=== PATIENT | female | born 2005 | race Caucasian/White ===

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

== ENCOUNTER 2024-01-07 14:37 | Outpatient (AMB) | payer OTHER, SELFPAY ==
[2024-01-07 14:42] VITALS: BP 104/66; BMI 25.3
--- NOTE | 2024-01-07 14:42 | A.OFFVIS_ITS ---
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 Doing well with no concerns. She tries to eat healthy and stays active with exercise. Mirena user, no regular cycles. Currently is sexually active, new partner x2 months. She denies vaginal itching and irritation. STI screening offered; she accepts. Denies family history of breast, ovarian or colon cancer. [facility] Medical History History of anemia Iron deficiency anemia Family History Family/Other Breast cancer Maternal Grandmother Diabetes High blood pressure Social History Alcohol intake: current Alcohol intake frequency: holidays/special occasions only Patient Tobacco Use Status: Never used Tobacco Current occupational status: student Sexual orientation: Straight/Heterosexual Gender identity: Female Female Reproductive History Menstrual Age of Menarche: 13 Duration of menses: 6-7 days Date of last menstrual period: 10/24/23 control method: progestin IUCD (Mirena 08/03) Total pregnancies: 0 History of STI: No Review of Systems Const All systems reviewed & are unremarkable except as noted in HPI and below Reports as per HPI Eyes Reports no additional complaints ENT Reports no additional complaints Card Reports no additional complaints Resp Reports no additional complaints GI Reports as per HPI and Reports no additional complaints Reports as per HPI Musc Reports no additional complaints Skin/Breast Reports as per HPI Neuro Reports no additional complaints Psych Reports no additional complaints Endo Reports no additional complaints Kareem/Lymph Reports no additional complaints Aller/Immun Reports no additional complaints Physical Exam Vital Signs: Last Vital Signs BP 104/66 01/07/24 14:42 BMI result Body Mass Index 25.3 Const General: cooperative, healthy appearing, no acute distress, well developed and alert Orientation/consciousness: patient oriented x3 HEENT Head: Yes normal to inspection Eyes General: appearance normal, both eyes and all related structures Neck Neck: Yes normal visual inspection Thyroid: Thyroid normal Chest Chest palpation & inspection: normal inspection of the chest and other (no puckering, dimpling, peau de orange, retraction, discharge, masses) Breast/axilla inspection: normal inspection of the breasts Breast/axilla palpation: normal palpation of the breasts Resp Effort & Inspection: normal respiratory effort GI Inspection: Yes normal to inspection Palpation (GI): Soft to palpation Rectal Exam - Female: deferred General: Yes bladder normal to palpation External Female Exam: normal external appearance and normal appearance of the urethra Speculum Exam - Vagina: normal appearance of the vagina, normal palpation and normal vaginal discharge (Thin and milky) Speculum Exam - Cervix: normal appearance of the cervix, normal palpation and Other cervical findings present (IUD strings present) Bimanual exam- vagina & uterus: normal bimanual exam, normal palpation, uterine size normal, bladder normal to palpation, normal palpation and non-tender Bimanual Exam- Adnexa, other: no masses Skin General skin exam: no rashes or lesions noted Rashes: no rashes Neuro General: patient oriented x3 Cognition (Neuro): normal cognition Extrem General: Yes normal to inspection Psych Attitude: cooperative Thought process: Normal thought process present Assessment & Plan Assessment & Plan (1) Encounter for well woman exam with routine gynecological exam: Code(s): Z01.419 - Encounter for gynecological examination (general) (routine) without abnormal findings Plan Discussed: Current recommendations for pap smears per ASCCP guidelines. Breast awareness and periodic breast exams. Maintain a healthy lifestyle including a well balanced diet and routine exercise. Use condoms for STI prevention. Patient verbalizes understanding and agrees to the plan of care. She was given opportunity to ask questions and all questions were answered to the best of my ability. 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 This note is constructed using voice recognition software. While every effort has been made to ensure accuracy, gusset maker errors may have been included. Orders: Orders HIV Ab/Ag Today Z20.2 - Contact with and (suspected) exposure to infections with a predominantly sexual mode of transmission Hepatitis C Antibody Reflex Today Z20.2 - Contact with and (suspected) exposure to infections with a predominantly sexual mode of transmission Hepatitis B Core Antibody Today Z20.2 - Contact with and (suspected) exposure to infections with a predominantly sexual mode of transmission Syphilis Screen Today Z20.2 - Contact with and (suspected) exposure to infections with a predominantly sexual mode of transmission Coding Level of Care Code Est Pt Prev Care 18-39y(16923) Diagnoses Encounter for well woman exam with routine gynecological exam Z01.419
== END 2024-01-08 07:29 | disposition home or self-care (01) ==
LOC: HO.HWS 14:37
PROVIDERS: PCP Family Medicine; Visit Provider Advanced Practice Midwife
DX: Z01.419 Encounter for gynecological examination (general) (routine) without abnormal findings (principal)
CPT/HCPCS: 99395

== ENCOUNTER 2024-01-07 14:37 | Outpatient (REF) | payer OTHER, SELFPAY ==
[2024-01-07 17:50] LABS: CT PCR NOT DETECTED (Not Detect.); NG PCR NOT DETECTED (Not Detect.)
[2024-01-08 15:26] LABS: BV Int Neg Control Negative (Negative); BV Int Pos Control Positive (Positive)
== END 2024-01-07 14:38 | disposition home or self-care (01) ==
LOC: HO.LAB 14:37
PROVIDERS: PCP Family Medicine; Visit Provider Advanced Practice Midwife
DX: Z01.419 Encounter for gynecological examination (general) (routine) without abnormal findings (principal); Z20.2 Contact with and (suspected) exposure to infections with a predominantly sexual mode of transmission
CPT/HCPCS: 0353U; 87480; 87510; 87660; 99395

== ENCOUNTER 2024-01-07 15:24 | Outpatient (REF) | payer OTHER, SELFPAY | END 2024-01-07 15:25 | disposition home or self-care (01) | LOC: HO.LNP 15:24 | PROVIDERS: Visit Provider Advanced Practice Midwife | DX: Z13.89 Encounter for screening for other disorder (principal) ==

== ENCOUNTER 2024-01-16 09:54 | Outpatient (REF) | payer OTHER, SELFPAY ==
[2024-01-17 08:19] LABS: HBc Num1 0.12 S/CO (0.00-0.79); HIV AB/AG Nonreactive (Nonreactive); HIV Num 1 0.07 S/CO (0.00-0.99); Hepatitis B Core Antibody Nonreactive (Nonreactive); ~Hepatitis C Antibody Nonreactive (Nonreactive)
[2024-01-17 08:21] LABS: Syphilis Screen Nonreactive (Nonreactive)
== END 2024-01-16 09:55 | disposition home or self-care (01) ==
LOC: HO.HMGCLDS 09:54
PROVIDERS: PCP Family Medicine; Visit Provider Advanced Practice Midwife
DX: Z11.4 Encounter for screening for human immunodeficiency virus [HIV] (principal); Z20.2 Contact with and (suspected) exposure to infections with a predominantly sexual mode of transmission
CPT/HCPCS: 36415; 86704; 86780; 86803; 87389

== ENCOUNTER 2024-07-24 12:33 | Outpatient (AMB) | payer OTHER, SELFPAY ==
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
[2024-07-24 12:44] VITALS: BP 102/68; PULSE 71; RESP 16; TEMP 36.7; O2SAT 95; BMI 25.5
== END 2024-07-24 13:53 | disposition home or self-care (01) ==
PROVIDERS: PCP Nurse Practitioner Family; Visit Provider Nurse Practitioner Family
DX: Z00.00 Encounter for general adult medical examination without abnormal findings (principal); R12 Heartburn; F41.9 Anxiety disorder, unspecified; G47.9 Sleep disorder, unspecified; D50.9 Iron deficiency anemia, unspecified
CPT/HCPCS: 96127; 99204; 99385

== ENCOUNTER 2025-02-19 12:47 | Outpatient (AMB) | payer OTHER, SELFPAY ==
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
[2025-02-19 12:54] VITALS: BP 123/58; PULSE 76; RESP 16; TEMP 36.8; O2SAT 100; BMI 28.8
== END 2025-02-19 13:46 | disposition home or self-care (01) ==
LOC: HO.HMCFM 12:47
PROVIDERS: PCP Nurse Practitioner Family; Visit Provider Nurse Practitioner Family
DX: F41.1 Generalized anxiety disorder (principal); F32.9 Major depressive disorder, single episode, unspecified; G47.9 Sleep disorder, unspecified

== ENCOUNTER → 2025-02-19 12:47 | Outpatient (BNVA) | payer OTHER, SELFPAY | PROVIDERS: PCP Nurse Practitioner Family; Visit Provider Nurse Practitioner Family | DX: F41.1 Generalized anxiety disorder (principal); F32.9 Major depressive disorder, single episode, unspecified; G47.9 Sleep disorder, unspecified | CPT/HCPCS: 99212 ==

== ENCOUNTER 2025-03-08 12:29 | Outpatient (REF) | payer OTHER, SELFPAY ==
--- OUTSIDE RECORDS SUMMARY | 2025-03-08 14:56 | XMS_ITS | Data Portability ---
Author Organization [place] [facility], Allergy Address [address] [place] [address] Care Team Providers Care Detail Assembler Name Role Phone ANDRE ARZOLA Referring Provider Assessment No assessment recorded. Plan of Treatment Reminders Order Date Submit Date Provider Last Modified By Organization Details Last Modified Time Details Appointments None recorded. Lab None recorded. Referral None recorded. Procedures allergen immunothera py; multiple injections (PROC) 2024 025 [email or web address] Not available 5 11:18:35 allergy testing, skin prick (PROC) 2023 024 [email or web address] Not available 4 13:40:03 intradermal allergy skin testing (PROC) 2023 024 [email or web address] Not available 4 13:40:03 pulmonary function test procedure (PROC) 2023 024 [email or web address] Not available 4 13:40:03 pulse oximetry (PROC) 2023 024 [email or web address] Not available 4 13:40:03 Surgeries None recorded. Imaging CT, sinuses, w/o contrast 2023 [facility], [address] [facility], [place], [address], 4 15:32:22 Medication Orders epinephrine 0.3 mg/0.3 mL injection, auto-inject or 2024 025 [facility] #[id number], [address] [facility] [place], [address], 08:36:53 Patient TargetsNo targets recorded. Patient Instructions Encounter Date Encounter Id Patient Instructions Last Modified By Organization Details Last Modified Time 10/06/2024 [id number] Nursing Documentation for Allergy Testing: Ordering Provider {{Dr. Dustin Shultz* Dr. Damian Melendez}} Weight:lbs:? ? ?kg: ? ? ? PFT {{Yes* no}} With Bronchodilator {{Yes no*}} Dr. ferguson needed to proceed with allergy testing? {{Yes No*}} {{Dr. Dustin Melendez}} ok'd testing {{Yes No Pulmonary Clearance PCP Clearance RAST}}Hi story of Asthma:{{Yes No*}} Asthma Meds: ? ? ?Last used:? ? ? Asthma exacerbated by: ? ? ? Chance that : {{Yes No* Not Sure N/A}} Fear of needles: {{Yes No*}} Regular medications reviewed in Computer: {{Yes* No}} Medication allergies: {{Reviewed* NKDA}} Antihistamine use: {{Yes No*}} Medications used: ? ? ? Food Allergies: ? ? ? n/a Any foods make your mouth feeling itchy: {{Yes No*}} If yes: ? ? ? History of severe reaction where had to go to ER? {{Yes No*}} If yes details: ? ? ? Type of heat in home: {{Baseboard Forced Air Radiator* othe r}} Pets: {{Yes* No}} If yes: ? ? ?1 dog Smoker: {{Yes Current Never* For tiffanie}} If former smoker-how much ? ? ? / day for how long ? ? ? When quit ? ? ? years ago Smoking now-how much ? ? ? /day for how long ? ? ? 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 ? ?sneezing Frequency {{Seasonally Year Round*}} Spirometry Contraindications: Heart attack in the last 3 months: {{Yes No*}} Major surgery in last 3 months: {{Yes No*}} Detached retina(serious eye issues) in last 2 months: {{Yes No*}} Hospitilization in last month: {{Yes No*}} Proceed with PFT {{Yes No*}} approval needed: {{Yes No*}} Nursing Notes: Pt tolerated test well {{Yes* No}} Benadryl cream to test sites {{Yes* No}} Patient became syncopal-placed in supine position {{Yes No*}} Large reactions to MQT, reschedule IDT for a different date {{Yes No*}} Other: ? ? ? Written by: {{CAPRI Coleman, CHANDU Keys*}} [email or web address] Not available 10/06/2024 10:54:52 Reason for Referral None Reported. Results Created Date Observation Date Name Description Value Unit Range Abnormal Flag Note LastModifiedBy Organization Detail LastModifiedTime 08/21/[address], sinus es, w/o contr ast No observ ation record ed. [email or web address] Of [address], [address], 08/21/2024 14:09:43 08/31/20 24 08/21/2024 CT, sinus es, w/o contr ast No observ ation record ed. [email or web address] Of [address], [address], 09/15/2024 09:07:04 10/06/20 24 gloria metry testi ng* No observ ation record ed. [email or web address] Not Available 09/12 17:35:29 Result Notes None recorded. Problems Name Problem SNOMED Code Status Onset Date Resolution Date Notes Provider Name and Address Organization Details Recorded Time Chronic sinusitis 50615944 Active 2023 Chronic sinusitis ; Note: Date Diagnosed : 03/12/2024 4:41 PM (473.9) Not Available [facility] 4 02:36:59 Acute sinusitis 87783505 Active 2023 Acute sinusitis , unspecifi ed; Note: Date Diagnosed : 03/12/2024 4:41 PM (J01.90) Not Available [facility] 02:37:06 Allergic rhinitis 69473506 Active 2023 Allergic rhinitis, unspecifi ed; Note: Date Diagnosed : 03/12/2024 4:40 PM (J30.9) Not Available [facility] 02:37:07 Chronic rhinitis 46658893 Active 2023 Chronic rhinitis; Note: Date Diagnosed : 03/12/2024 4:35 PM (J31.0) Not Available [facility] 4 02:37:10 Recurrent acute sinusitis 807476063 Active 2023 JAMISON SHULTZ MD [address] [facility],[place] [address], [place], [address] , [facility] - [facility] 4 14:01:22 Nasal congestio n 61059212 Active 2023 JAMISON SHULTZ MD [address] [facility],[place] [address], [place], [address] , [facility] - [facility] [place] 4 14:01:27 Seasonal allergic rhinitis 428086953 Active 2023 JAMISON SHULZT MD [address] [facility],[place] [address], [place], [address] , [facility] - [facility] [place] 4 14:01:50 Non-aller gic rhinitis 66944501913 1 Active 2023 JAMISON SHULTZ MD [address],[place] [address], [place], [address] , [facility] - [facility] [place] 4 14:09:55 Deviated nasal septum 465885145 Active 2024 JAMISON SHULTZ MD [address] [facility],[place] [address], [place], [address] , [facility] - [facility] [place] 5 08:36:12 Problem Notes None recorded. Procedures Surgical History Date Name Laterality Status Provider Name and Address Organization Details Recorded Time Allergy Testing-Full completed CHANDU ASHLEY [address], [address], [facility] - [facility] 10/06/2024 11:51:38 NasalEndosco py_DP completed JAMISON SHULTZ MD [address] [place] [address], [address], [facility] - [facility] 08/21/2024 14:10:52 Imaging Results Imaging Date Name Status LastModified by Organiz ation Details LastModified Time 08/21/2024 CT, sinuses, w/o contrast completed [email or web address] [address], [address], 08/21/2024 14:09:43 08/21/2024 CT, sinuses, w/o contrast completed [email or web address] [address], [address], 09/15/2024 09:07:04 10/06/2024 spirometry testing* completed re[facility]steiner Information not available 10/06/2024 17:35:29 Procedure Notes None recorded. Medical Equipment None Reported. Medications Name Sig Start Date Stop Date Status Note LastModified by Organization Details LastModified Time cyclobenz aprine 10 mg tablet active Not Available Not Available No t Available fluconazo le 150 mg tablet TAKE 1 TABLET BY MOUTH FOR 1 DOSE 10/06 completed Not Available Not Available Not Available metronida zole 0.75 % (37.5 mg/5 gram) vaginal gel USE 1 APPLICAT ORFUL VAGINALL Y BEDTIME FOR 5 DAYS 10/06 completed Not Available Not Available Not Available prednison e 20 mg tablet TAKE 2 TABLETS BY MOUTH DAILY FOR 5 DAYS 10/06 completed Not Available Not Available Not Available acetamino phen 500 mg tablet TAKE 1 TABLET BY MOUTH EVERY 6-8 HOURS NEEDED FOR PAIN. (ALTERNA TE WITH IBU) active Not Available Not Available No t Available amoxicill in 875 mg tablet TAKE 1 TAB BY MOUTH WITH FOOD TWICE A DAY FOR 7 DAYS active Not Available Not Available No t Available oseltamiv ir 75 mg capsule TAKE 1 CAPSULE BY MOUTH EVERY 12 HOURS FOR 5 DAYS 10/06 completed Not Available Not Available Not Available fluoxetin e 20 mg tablet TAKE 1 TABLET (20 MG) ORALLY DAILY FOR 30 DAYS 10/06 completed Not Available Not Available Not Available omeprazol e 20 mg capsule,d elayed release TAKE 1 CAPSULE BY MOUTH EVERY DAY 10/06 completed Not Available Not Available Not Available epinephri ne 0.3 mg/0.3 mL injection , auto-inje ctor TAKE 1 AUTO BY INJECTIO N ROUTE FOR 180 DAYS, FOR ANAPHYLA XIS. active Not Available Not Available No t Available ibuprofen 600 mg tablet TAKE 1 TABLET BY MOUTH EVERY 6 HOURS NEEDED FOR PAIN active Not Available Not Available No t Available ondansetr on 4 mg disintegr ating tablet TAKE 1 TABLET BY MOUTH EVERY 12 HOURS NEEDED FOR NAUSEA AND VOMITING FOR 5 DAYS 10/06 completed Not Available Not Available Not Available amoxicill in 875 mg-potass ium clavulana te 125 mg tablet Take 1 tablet by mouth twice a day 10/06 completed Medicati on ID: [id number] D uration Value: 21 Brand Name: amoxicil leola-pot clavulan ate Send Method: E-Prescr ibed Sub s Allowed: subs OK Medic ationGen ericName : amoxicil leola-pot clavulan ate Not Available Not Available Not Available Vitals Date Recorded Body height Body mass index (BMI) Body mass index (BMI) [Percentile] Per age and sex Body weight Provider Name and Address Organization Details Last Updated DateTime 08/21/2024 157.48 cm 25.2 kg/m2 79 % 01605.75 g Howard Stark [place] [facility] 08/21/2024 13:56:19 Date Recorded Body height Body mass index (BMI) Body mass index (BMI) [Percentile] Per age and sex Body weight Oxygen saturation Oxygen saturation in Arterial blood by Pulse oximetry Heart rate Systolic blood pressure Diastolic blood pressure Provider Name and Address Organization Details Last Updated DateTime 157.48 cm 26.5 kg/m2 85 % 66268.8 9 g 99 % 99 % 84 /min 104 mm[Hg] 75 mm[Hg] CHANDU ASHLEY [address], [address], [place] [facility] 10:40:11 Date Recorded Body height Body mass index (BMI) [Percentile] Per age and sex Body mass index (BMI) Body weight Provider Name and Address Organization Details Last Updated DateTime 11/24/2024 157.48 cm 85 % 26.5 kg/m2 99319.89 g Howard Stark [place] [facility] 11/24/2024 08:21:39 Social History None recorded. Functional Status None recorded. Mental Status None recorded. Family History Nothing Reported. Medical History No medical history recorded. Gynecological HistoryNo gynecological history recorded. Obstetrics History GPAL:G 0 P 0 0 0 0 Past Encounters Encounter ID Performer Location Encounter Start Date Encounter Closed Date Diagnosis/Indication Diagnosis SNOMED-CT Code Diagnosis ICD10 Code Diagnosis Note [id number] JAMISON SHULTZ MD [facility] [address] [address] 08/21/2024 13:30:50 08/21/2024 14:12:54 Recurrent acute sinusitis 847945126 J01.[address] sinus to assess for chronic sinusitis. CT was negative for sinusitis today. I personally reviewed with her. Nasal congestion 3445313 0 R09.81 may be due to allergic rhinitis and structural factors. She does have a deviated septum. We will obtain allergy testing to better assess the contributi on from allergy before pursuing surgery. Seasonal a llergic rhinitis 178931677 J30.2 Exam and history are consistent with allergic rhinitis. We will obtain allergy testing to clarify the extent of allergy with f/u to review. [id number] CHANDU ASHLEY [facility] [address] [place] [address] [address] 10/06/2024 10:15:24 10/06/2024 12:13:10 Allergic rhinitis 45990821 J30.9 [id number] JAMISON SHULTZ MD [facility] [address] [address] 11/24/2024 08:04:51 11/24/2024 08:38:21 Recurrent acute sinusitis 508555463 J01.[address] from last visit again which did not show significan t sinusitis. Nasal congestion 9941176 0 R09.81 may be due to allergic rhinitis and structural factors. She does have a deviated septum. We will obtain allergy testing to better assess the contributi on from allergy before pursuing surgery. Seasonal a llergic rhinitis 860535457 J30.2 She is a good candidate for SCIT based on her allergy testing. We also discussed the role of immunother apy. I explained that this is instituted for the most significan t of allergies and involves the introducti on of increasing ly graduated dosages of the appropriat e allergens by subcutaneo us injection to facilitate tolerance. I explained about the likelihood of some improvemen t usually within a three to six month time period provided that the patient is compliant with therapy. It may take substantia lly longer for patients with severe allergy. We spoke about the duration of therapy, which typically lasts from three to five years though at times can be indefinite . We also discussed the risk of anaphylaxi s with therapy. Use of an Epipen discussed. Allergic rhinitis 009904 04 J30.89 see above Deviated nasal septum 12 8247707 J34.2 She is a candidate for surgery. We discussed the risks and benefits but agreed to defer in favor of allergy treatment for now. Health Concerns Section Related Observation LastModified by Organization Detai ls LastModified Time None Recorded Concern Status LastModified by Organization Details LastModified Time None Recorded Advance Directives Directive None Recorded Payers Encounter Date Sequence Insurance Name Policy Number Policy Short Covered Member ID Short Member ID Guarantor Name 08/21/2024 1 [facility] ([facility] [place] ISABELLA Kimball [id number] David Kimball 10/06/2024 1 [facility] [employer] ([place]) ISABELLA Kimball [id number] David Kimball 11/24/2024 1 [facility] [employer] ([facility] [place] ISABELLA Kimball [id number] David Kimball Notes Date Note Type Note Provider Name and Address Organization Details Recorded Time 08/21/2024 text/html For the last 4 years she has had trouble with mucus in her nose. She reports she has recurring sinus infections. She is usually treated with abx. Abx help the symptoms but she still feels congested. She reports frontal sinus pressure. She has frequent headaches. She also has a history of migraine. She has tried flonase but it doesn't seem to help. She also reports seasonal allergies usually in the fall. JAMISON SHULTZ MD [address] [facility],[place] [address], [place], [address], [facility] - [facility] 08/21/2024 15:30:58 11/24/2024 text/html Allergies and Deviated Septum She reports nasal obstruction. Has not improved with steroid nasal spray. For the last 4 years she has had trouble with mucus in her nose. CT sinus at the last visit showed clear sinuses. We obtained allergy testing which showed moderate allergies to dust, mold, weeds and dogs. JAMISON SHULTZ MD [address] [place] [address],[place] [address], [place], [address], [facility] 11/24/2024 08:36:56 OBGyn Episode No OBEpisode recorded.
[2025-03-08 16:45] LABS: Vitamin D 25-OH Total 30.3 ng/mL (>30)
== END 2025-03-08 12:30 | disposition home or self-care (01) ==
LOC: HO.HMGCLDS 12:29
PROVIDERS: PCP Nurse Practitioner Family; Visit Provider Nurse Practitioner Family
DX: Z00.00 Encounter for general adult medical examination without abnormal findings (principal)
CPT/HCPCS: 36415; 82306

== ENCOUNTER 2025-03-09 15:52 | Outpatient (AMB) | payer OTHER, SELFPAY ==
--- NOTE | 2025-03-09 15:54 | A.OFFPC_ITS ---
Vital Signs 03/09/25 15:59 03/09/25 16:25 Height 5 ft 2 in Weight 157 lb 8 oz BMI 28.8 BP 116/60 Blood Pressure Location Rt brachial Position Sitting Respiration 16 Pulse 127 H 112 H Pulse Source Pulse Oximeter Auscultation Temp 98.0 F Temp Source Oral Pulse Oximetry (%) 99 Oxygen Delivery Method Room Air Intake Visit Reasons: 2 wks DOTNAE, MDD, labs review Intake Note: patient here for 2 wks follow up on DONTAE, MDD and lab review Escrow Secretary Required: No Is last menstrual period known: No (IUD) Post menopausal: No Patient : No Allergies Penicillins Allergy (Mild, Verified 03/09/25 16:15) Unknown insect venom [MOSQUITO] Allergy (Unknown, Verified 03/09/25 16:15) SWELLING Medication List - Last Reconciled 03/09/25 by Gino Richards CNP fluoxetine 20 mg PO DAILY 30 days hydroxyzine HCl 25 mg PO TID PRN levonorgestrel (Mirena) intrauterine omeprazole 20 mg PO DAILY 30 days Tobacco use date assessed: 03/09/25 Dental Screening Dental Screen Date: 03/09/25 Did you have a dental visit in the last 12 months?: Yes Did you have a dental problem in the last 6 months where you did not have access to dental care?: No Was dental information given to patient?: Patient has dentist HPI HPI Comments History of Present Illness Details 19-year-old female presents for DONTAE, MDD , and review of recent lab results. She admits to taking fluoxetine and hydroxyzine as prescribed without adverse reactions. She notes improved anxiety and depressive symptoms since her last visit. She has taking hydroxyzine only twice. Also, she has figured out many things in her life and therefore her symptoms are improved. She has not been contacted to establish with a therapist. She exercises but not routinely. She did not get blood work done for this visit as planned. [facility] Medical History (Updated 03/09/25 @ 16:16 by Gino Richards CNP) Depression Fracture, foot Iron deficiency anemia History of anemia Family History (Updated 07/24/24 @ 13:17 by Virgen Keys MA) Family/Other Breast cancer Maternal Grandmother Diabetes High blood pressure Social History Housing: House Alcohol intake: current Alcohol intake frequency: holidays/special occasions only Patient Tobacco Use Status: Never used Tobacco e-Cigarette/Vaping Use: Never Used Second Hand Smoke Exposure: No service: No Current occupational status: student Current occupational exposures/hazards: No Sexual orientation: Straight/Heterosexual Gender identity: Female Cognitive needs: No Hearing needs: No Vision needs: Yes Female Reproductive History Menstrual Age of Menarche: 13 Questionnaire PHQ-9 Over the last 2 weeks, how often have you been bothered by any of the following problems? 1. Little interest or pleasure in doing things: several days 2. Feeling down, depressed, or hopeless: several days 3. Trouble falling or staying asleep, or sleeping too much: several days 4. Feeling tired or having little energy: several days 5. Poor appetite or overeating: more than half the days 6. Feeling bad about yourself - or that you are a failure or have let yourself or your family down: several days 7. Trouble concentrating on things, such as reading the newspaper or watching television: not at all 8. Moving or speaking so slowly that other people could have noticed. Or the opposite - being so fidgety or restless that you have been moving around a lot more than usual: more than half the days 9. Thoughts that you would be better off or of hurting yourself in some way: not at all Total score: 9 Depression Screening Interpretation: Positive Depression Screening Follow-up: Existing condition and In treatment Depression Screening Done: Yes 79456 - PHQ-9 Billing: Yes Source: Developed by Drs. Buddy Florez, Xiao Arnett, Ralph Garcia and colleagues, with an educational judy from [employer]. Thrive Questionnaire Date Thrive assessed: 03/09/25 I am a: Patient What is your living situation today?: I have a steady place to live Within the past 12 months, did the food you bought not last and you didn't have the money to get more?: Never true Within the past 12 months, did you worry whether your food would run out before you got money to buy more?: Never true Do you have trouble paying for medicines?: No Do you have trouble getting transportation to medical appointments?: No Do you have trouble paying your heating and electricity bill?: No Do you have trouble taking care of your child, family member or friend?: No Do you have trouble with day-to-day activities such as bathing, preparing meals, shopping, managing finances, etc.?: No Are you currently unemployed and looking for a job?: No Are you interested in more education?: No Please select the resources that you would like help with: None Currently or been in a relationship where the following occur: No concerns reported THRIVE Score: 0 AUDIT C Alcohol Use Questionnaire (AUDIT-C) 1. How often do you have a drink containing alcohol?: Monthly or less 2. How many drinks containing alcohol do you have on a typical day when you are drinking?: 1 or 2 3. How often do you have six or more drinks on one occasion?: Never Total Score: 1 Score Reviewed/Action Taken: Yes DONTAE-7 AMB Questionnaire DONTAE-7 Date DONTAE - 7 assessed: 03/09/25 Feeling nervous, anxious, or on edge: 1 = Several days Not being able to stop or control worryin = More than half the days Worrying too much about different things: 2 = More than half the days Trouble relaxin = Several days Being so restless that it is hard to sit still: 1 = Several days Becoming easily annoyed or irritable: 2 = More than half the days Feeling afraid as if something awful might happen: 1 = Several days Total DONTAE-7 score (0-4 normal; 5-9 mild; 10-14 moderate; 15-21 severe): 10 Source: Developed by Drs. Buddy Florez, Xiao Arnett, Ralph Garcia and colleagues, with an educational judy from [employer]. DONTAE-7 Assessment Billing DONTAE-7 Assessment Tool: DONTAE-7 Assessment 84105 Review of Systems Const Details: Const Denies chills, Denies fatigue, Denies fever(s), Denies headache(s) and Denies weakness ENT Denies dizziness and Denies headache(s) Card Denies chest pain, Denies lightheadedness, Denies dyspnea and Denies other (Palpitations) Resp Denies cough, Denies dyspnea, Denies wheezing and Denies other ( shortness of breath) GI Denies abdominal pain, Denies melena, Denies hematochezia, Denies change in bowel habits, Denies dyspepsia and Denies nausea Denies hematuria and Denies dysuria Musc Denies abnormal gait, Denies myalgias, Denies arthralgias, Denies numbness and Denies tingling Skin/Breast Denies rash, Denies unusual bruising and Denies wounds Neuro Denies abnormal gait, Denies dizziness, Denies headache(s), Denies memory loss, Denies numbness, Denies Sensory deficit (Neuro), Denies tingling and Denies weakness Psych Denies anxiety, Denies depression, Denies memory loss Endo Denies cold intolerance, Denies fatigue, Denies heat intolerance, Denies polydipsia and Denies polyuria Aller/Immun Denies wheezing Physical exam (Primary Care) Tobacco/Smoking Status: Tobacco use Status Tobacco use date assessed 02/19/25 03/09/25 15:57 Patient Tobacco Use Status Never used Tobacco 03/09/25 15:57 e-Cigarette/Vaping Use Never Used 03/09/25 15:57 Depression Screening Interpretation: Positive Depression Screening Follow-up: Existing condition and In treatment Thrive Assessment: Date of Thrive Assessment Date Thrive assessed 07/24/24 03/09/25 15:57 Currently or been in a relationship where the following occur: No concerns reported Const Other: General: no acute distress and well developed Nutritional Appearance: well nourished Orientation/consciousness: patient oriented x3 HENMT Head: Yes normocephalic and Yes atraumatic Eyes General: appearance normal, both eyes and all related structures Pupils: Equal, round and reactive pupils present EOM: EOMs intact bilaterally Resp Effort & Inspection: normal respiratory effort Auscultation: clear to auscultation bilaterally Cardio Rate: regular rate Rhythm: regular rhythm Heart sounds: S1 normal heart sound present, S2 normal heart sound present, no gallops, no murmurs and no rubs GI Palpation (GI): No Abdominal aortic bruit present, Soft to palpation, nontender, No hepatosplenomegaly present and No Rebound tenderness present Auscultation: normal bowel sounds General: Yes no CVA tenderness Back/Spine/Pelvis Back: no CVA tenderness Cervical Spine: cervical ROM normal and No Cervical spine tenderness Thoracic/Lumbar Spine: thoraco-lumbar ROM normal, No pain with thoraco-lumbar ROM, No thoracic spinal tenderness and No lumbar spinal tenderness Extrem General: Yes normal to inspection, No edema and No calf tenderness Skin General: warm and dry. Normal skin color. Normal skin turgor Neuro General: patient oriented x3, gait normal and no focal neuro deficit Cranial nerves: Yes Equal, round and reactive pupils present Cognition (Neuro): normal cognition Gait exam (Neuro): Normal gait present Sensory Exam: No Sensory deficit (Neuro) Psych Appearance: grossly normal Affect: normal affect Attitude: cooperative Thought process: Normal thought process present Coding Level of Care Code Est Pt Level 3 (86196) Diagnoses Generalized anxiety disorder F41.1 Major depressive disorder F32.9 Additional Codes DONTAE-7 Assessment Billing - DONTAE-7 Assessment Tool: DONTAE-7 Assessment 95484 ([id number]) PHQ-9 - 30966 - PHQ-9 Billing: Yes ([id number]) Assessment & Plan Assessment & Plan (1) Generalized anxiety disorder: Code(s): F41.1 - Generalized anxiety disorder Category: Medical Plan: Anxiety and depressive symptoms have improved since her last visit. PHQ-9 and DONTAE-7 scores revealed mild depression and moderate anxiety respectively. Continue current treatment regimen. Routine exercise encouraged. Advised to perform fasting blood work at least 2-3 days before next visit. Follow-up in 1 month or sooner with worsening or new symptoms. Verbalized understanding and agreed with the plan. (2) Major depressive disorder: Code(s): F32.9 - Major depressive disorder, single episode, unspecified Category: Medical Plan: Plan as above.
[2025-03-09 15:59] VITALS: BP 116/60; PULSE 127; RESP 16; TEMP 36.7; O2SAT 99; BMI 28.8
[2025-03-09 16:25] VITALS: PULSE 112
== END 2025-03-09 16:24 | disposition home or self-care (01) ==
LOC: HO.HMCFM 15:53
PROVIDERS: PCP Nurse Practitioner Family; Visit Provider Nurse Practitioner Family
DX: F41.1 Generalized anxiety disorder (principal); F32.9 Major depressive disorder, single episode, unspecified

== ENCOUNTER → 2025-03-09 15:52 | Outpatient (BNVA) | payer OTHER, SELFPAY | PROVIDERS: PCP Nurse Practitioner Family; Visit Provider Nurse Practitioner Family | DX: F41.1 Generalized anxiety disorder (principal); F32.9 Major depressive disorder, single episode, unspecified; Z79.899 Other long term (current) drug therapy | CPT/HCPCS: 96127; 99212 ==